=== PATIENT | male | born 1985 | race African-American/Black ===

== ENCOUNTER 2016-10-16 08:29 | Emergency (ER) | payer OTHER ==
[~2016-10-16] VITALS: Ht 182.9 cm; Wt 88.0 kg
[2016-10-16 08:29] VITALS: BP 130/98
[~2016-10-16 08:29] MED LIST: NAPROSYN500 MG PO; NORFLEX100 MG PO; ZOFRAN ODT4 MG PO
== END 2016-10-16 09:50 | disposition home or self-care (01) ==
LOC: ER 08:29
DX: S61.411A Laceration without foreign body of right hand, initial encounter (principal); W45.8XXA Other foreign body or object entering through skin, initial encounter; Y93.89 Activity, other specified; Y92.89 Other specified places as the place of occurrence of the external cause; Y99.9 Unspecified external cause status

== ENCOUNTER 2016-10-24 18:08 | Emergency (ER) | payer OTHER ==
[~2016-10-24] VITALS: Ht 182.9 cm; Wt 88.5 kg
[2016-10-24 18:19] VITALS: BP 120/66
== END 2016-10-24 20:12 | disposition home or self-care (01) ==
LOC: ER 18:08
DX: Z53.21 Procedure and treatment not carried out due to patient leaving prior to being seen by health care provider (principal)

== ENCOUNTER 2019-02-22 09:58 | Emergency (ER) | payer OTHER ==
[~2019-02-22] VITALS: Ht 182.9 cm; Wt 89.4 kg
[~2019-02-22 09:58] MED LIST changes: +LIORESAL 10 MG10 MG PO
[2019-02-22] MEDS ORDERED: AMOXICILLIN 50500 M1 PO (10:25)
[2019-02-22] MEDS ORDERED: ULTRAM 50MG TAB50 MG PO (10:25)
[2019-02-22] MEDS ORDERED: NAPROSYN500 MG PO (10:25)
[2019-02-22 10:31] VITALS: BP 150/94
== END 2019-02-22 10:40 | disposition home or self-care (01) ==
LOC: ER 09:58
DX: K02.9 Dental caries, unspecified (principal); F17.210 Nicotine dependence, cigarettes, uncomplicated